=== PATIENT | female | born 1995 | race African-American/Black ===

== ENCOUNTER 2021-03-03 00:11 | Outpatient (CLI) | payer MEDICAID ==
[2021-03-03] VITALS (21 sets, daily range): BP systolic 128–152; BP diastolic 74–96; PULSE 99–115; TEMP 97.7–97.8
[~2021-03-03] VITALS: Ht 152.4 cm; Wt 97.7 kg
[~2021-03-03 00:11] MED LIST: MACROBID 1100 MG/CAP PO; MOTRIN 600600 MG/TAB PO; PERCOCET 325 MG1 TA2 PO; PRENATAL 191 CTB PO; PRENATAL1 TA7 PO
--- NOTE | 2021-03-03 00:15 | NUR ---
PT TO UNIT VIA WHEELCHAIR WITH COMPLAINTS OF CONTRACTIONS THAT HAVE BECOME MORE INTENSE SINCE APPROXIMATELY 2099. PT ORIENTED TO ROOM, THIS NURSE ASSISTED PT INTO GOWN, EFMX2, VS OBTAINED, SVE PERFORMED.
[2021-03-03] MEDS ORDERED: OSCAL 500 TAB500 MG (00:23)
[2021-03-03] MEDS ORDERED: PRENATAL MVI (00:23)
[2021-03-03] MEDS ORDERED: TYLENOL 500MG500 MG PO (00:55)
[2021-03-03] MEDS ORDERED: ZYRTEC5 MG PO (00:55)
[2021-03-03] MEDS ORDERED: BENADRYL25 M2 PO (00:57)
[2021-03-03 01:39] LABS: BASO % 0.3 % (0.0-2.0); EOS # 0.1 (0.0-0.7); EOS % 0.9 % (0-4.0); GRAN # 5.9 (1.4-6.5); GRAN % 67.3 % (42.2-75.2); HEMOGLOBIN 10.1 g/dl (12.5-16.0); LYMPH # 1.9 (1.2-3.4); LYMPH % 22.1 % (20.0-51.0); MEAN CELL VOLUME 74 fl (80.0-100.0); MEAN CORPUSCULAR HEMOGLOBIN 22 pg (27.0-31.0); MEAN CORPUSCULAR HGB CONC 30 g/dl (33.0-37.0); MEAN PLATELET VOLUME 10.8 fl (7.4-10.4); MONO # 0.7 (0.1-0.6); MONO % 8.5 % (1.7-9.3); PLATELET COUNT 404 K/mm3 (130-400); RED BLOOD COUNT 4.59 M/mm3 (4.10-5.30); REDCELL DISTRIBUTION WIDTH-CV 17.9 % (11.5-14.5)
[2021-03-03 01:44] LABS: HEMATOCRIT 33.8 % (37.0-47.0)
[2021-03-03 01:50] LABS: ALBUMIN 3.8 gm/dL (3.5-5.0); BILIRUBIN,TOTAL 0.2 mg/dL (0.0-1.0); CALCIUM 9.7 mg/dL (8.4-10.2); CREATININE, serum 0.5 (0.52-1.25); TOTAL PROTEIN 7.2 gm/dL (6.4-8.2)
--- NOTE | 2021-03-03 08:58 | NUR ---
Reactive FHR strip obtained. Pt requesting ambulation and birthing ball. Taken off monitors.
--- NOTE | 2021-03-03 11:31 | NUR ---
Pt taken of monitors for ambulation and birthing ball. 1209-Pt back to monitors. Second does of Jennifer infusing per Dr. Norris. Pt on birthing ball. 1212-Pulse ox applied to differentiate MHR v. FHR. Maternal HR noted in 111s. FHR noted in the 120s. 1214-Difficulty determining FHR drop due to maternal position on birthing ball and intermittent tracing. Pulse ox reapplied. Pt to bed to accurately trace. Dr. Norris on unit. Reviews FHR strip. Orders to recheck SVE in 2 hours. If unchanged ok to depart.
--- NOTE | 2021-03-03 13:50 | NUR ---
SVE per this RN unchanged over several hours. Cat [address] Norris notified. See physician notification. Pt taken off monitors. IV d/c'd. Dicharge instructions given. Pt verbalizes understanding. Pt leaves unit with significant other. No questions at this time.
== END 2021-03-03 14:00 | disposition home or self-care (01) ==
LOC: LDR 00:11 → LDRO 00:11 → LDR 00:15 → LDRO 14:00
PROVIDERS: Obstetrics & Gynecology
DX: O62.9 Abnormality of forces of labor, unspecified (principal); Z3A.36 36 weeks gestation of pregnancy
CPT/HCPCS: OP; J2270; J2540; J7120

== ENCOUNTER 2021-03-05 02:44 | Outpatient (CLI) | payer MEDICAID ==
[~2021-03-05] VITALS: Ht 152.4 cm; Wt 97.7 kg
[~2021-03-05 02:44] MED LIST changes: +BENADRYL25 M2 PO; +OSCAL 500 TAB500 MG; +PRENATAL MVI; +TYLENOL 500MG500 MG PO; +ZYRTEC5 MG PO
--- NOTE | 2021-03-05 02:45 | NUR ---
To unit via wheelchair, accompanied by significant other, for labor assessemnt. Oriented to room, monitor, plan of care. Questions invited and answered. Pt reports " contractions started at 12;40"
[2021-03-05 03:00] VITALS: BP 122/71; PULSE 100; TEMP 98.9
--- NOTE | 2021-03-05 03:00 | NUR ---
Pt reports "I had a trickle of fluid run down my thigh a couple of hours ago". SVE amnio trace negative, no fluid illicitted with exam, no bleeding, 3/80%.
[2021-03-05 04:35] VITALS: BP 155/93; PULSE 105
--- NOTE | 2021-03-05 04:35 | NUR ---
Pt taken off monitor. Explained to pt that SVE's and FHR tracing reviewed with mission systems engineer DR and DR gave order for her to be discharged to home.
--- NOTE | 2021-03-05 04:45 | NUR ---
Into room to give discharge instructions. Pt dressed sitting on edge of bed, rocking. Pt states "what Dr said I needed to go home?" Explained to pt that Dr Graham was the Dr armed security professional and that was the Dr giving the discharge order. Pt replies "of course it's her. It should be on my record that she is not to be taking care of me or making decisions about my care." Explained to pt that is how the armed security professional process works: armed security professional Dr makes pt care decisions at night and on weekends. Pt asked about her last BP and I reported it to her, explaining that prior BP had been ok. Pt asks if we are going to give her any medicine to make the contractions go away and I told her no that this is not uncommon in last weeks of for contractions to come and go. Pt continues upset. Informed pt I would discuss elevated BP with armed security professional DR and her other concerns.
--- NOTE | 2021-03-05 05:05 | NUR ---
Into pt room to discuss new plan of care with pt. Explained that we will do labs r/t elevated BP. PT asks when her DR would be available to be called, explained to pt that Drs resume @ 0700. Significant other asks if they could talk about it. Explained to pt that I would leave the room and let them talk about it and for them to let me know what they needed.
--- NOTE | 2021-03-05 05:15 | NUR ---
back into room to check on pt. Pt sitting on edge of bed, requests BP be retaken, stating " sometimes my bp is good than 30 minutes later it's high. I had to be induced both times because of my PIH" BP 149/93, HR 111. Explained to pt that sometimes BP's can fluctuate and that labs are used to determine the severity. Pt asks "are you going to check my urine for protein?" Explained that yes we would check her urine as well as blood values.
[2021-03-05 05:18] VITALS: BP 149/93; PULSE 111
[2021-03-05 05:55] LABS: COLLECTION METHOD CLEAN CATCH
[2021-03-05 05:56] LABS: BASO % 0.3 % (0.0-2.0); EOS # 0.1 (0.0-0.7); EOS % 0.8 % (0-4.0); LYMPH # 1.7 (1.2-3.4); LYMPH % 15.7 % (20.0-51.0); MEAN CELL VOLUME 73 fl (80.0-100.0); MEAN CORPUSCULAR HGB CONC 30 g/dl (33.0-37.0); MEAN PLATELET VOLUME 10.4 fl (7.4-10.4); MONO # 0.7 (0.1-0.6); MONO % 6.3 % (1.7-9.3); PLATELET COUNT 384 K/mm3 (130-400); RED BLOOD COUNT 4.27 M/mm3 (4.10-5.30)
[2021-03-05 05:57] LABS: HEMATOCRIT 31.2 % (37.0-47.0); HEMOGLOBIN 9.4 g/dl (12.5-16.0); MEAN CORPUSCULAR HEMOGLOBIN 22 pg (27.0-31.0)
[2021-03-05 06:01] LABS: MUCOUS Present /lpf; PH 7 (5-8); URINE APPEARANCE Cloudy; URINE BACTERIA None Seen /hpf; URINE BILIRUBIN Negative (NEGATIVE); URINE BLOOD 1+ (NEGATIVE); URINE COLOR Yellow; URINE GLUCOSE Negative (NEGATIVE); URINE KETONE 1+ (NEGATIVE); URINE LEUKOCYTE ESTERASE 3+ (NEGATIVE); URINE NITRATE Negative (NEGATIVE); URINE PROTEIN(semi-quant) 1+ (NEGATIVE); URINE RBC 0-2 /hpf; URINE UROBILINOGEN Negative (NEGATIVE); URINE WBC 20-50 /hpf
[2021-03-05 06:08] LABS: ALBUMIN 3.7 gm/dL (3.5-5.0); BILIRUBIN,TOTAL 0.3 mg/dL (0.0-1.0); CALCIUM 9.5 mg/dL (8.4-10.2); CREATININE, serum 0.53 (0.52-1.25); TOTAL PROTEIN 7.2 gm/dL (6.4-8.2)
[2021-03-05 06:10] VITALS: BP 133/82
[2021-03-05 07:00] VITALS: BP 133/82; PULSE 78
--- NOTE | 2021-03-05 07:16 | NUR ---
0700 sve unchanged. all labs called to Dr Norris and Bp report of 133/82. orders to dismiss to home to take tylenol pm and hot bath for discomfort. verbal understanding noted by patient and boyfriend. Pt not happy. will keep appointment with Dr Norris in morning. patient denies needs.
== END 2021-03-05 07:15 | disposition home or self-care (01) ==
LOC: LDRO 02:44 → LDR 03:15 → LDRO 07:15
PROVIDERS: Obstetrics & Gynecology
DX: O62.9 Abnormality of forces of labor, unspecified (principal); Z3A.37 37 weeks gestation of pregnancy
CPT/HCPCS: OP

== ENCOUNTER 2021-03-10 12:10 | Outpatient (CLI) | payer MEDICAID ==
[~2021-03-10] VITALS: Ht 152.4 cm; Wt 99.1 kg
--- NOTE | 2021-03-10 12:15 | NUR ---
1215- 37.5, G4L2 here with c/o left hand numbness/edema, and irregular contractions. Ambulatory to LDR3 with SO. Reports normal movement. Denies any LOF, or VB. 1225- EFM explained and placed x2. Assessment completed, and VS obtained. 1255- Dr. Roles at desk and updated on pt. See physician notification. Plan of care reviewed with pt who verblizes undersanding.
[2021-03-10 12:45] VITALS: BP 122/85; BP 125/82; PULSE 109; TEMP 99.7
[2021-03-10 13:15] VITALS: BP 123/80; PULSE 115
[2021-03-10 13:50] VITALS: BP 124/75; PULSE 110
--- NOTE | 2021-03-10 13:50 | NUR ---
Discharge instructions reviewed with pt and SO who verbalize understanding. Ambulatory off unit with SO.
== END 2021-03-10 13:50 | disposition home or self-care (01) ==
LOC: LDRO 12:10
DX: O12.03 Gestational edema, third trimester (principal); Z3A.37 37 weeks gestation of pregnancy